=== PATIENT | female | born 1995 | race Native Hawaiian/Other Pacific Islander ===

== ENCOUNTER 2016-07-26 13:42 | Emergency (ER) | payer OTHER ==
[2016-07-26] MEDS ORDERED: Ondansetron INJ* 2 MG/ML VIAL IV ONE (15:58)
[2016-07-26] MEDS ORDERED: NS 0.9% 1000 ML* 1,000 ML IV ONE (15:58)
[2016-07-26] MEDS ORDERED: LORazepam INJ* 2 MG/ML 1 ML VIAL IV PUSH ONE (17:58)
[2016-07-26] MEDS ORDERED: LORazepam TAB(*) 1 MG PO ONE (18:12)
--- NOTE | 2016-07-26 19:00 | ED ---
HPI Chest Pain - HPI Summary HPI Summary: Patient is a 20yo F with a hx of anxiety who arrives with mid-sternal chest pain radiating to the neck since this morning. She denies diaphoresis, weakness , SOB currently or N/V. She states she has had these symptoms before related to her anxiety. She currently takes Zoloft, venlafaxine and propanolol only as needed. She is following up with her therapist tomorrow. Denies family history or personal hx of CAD. Worsening anxiety x 1 month d/t school. Denies SI/HI or self harm. - History of Current Complaint Chief Complaint: EDGeneral Time Seen by Provider: 07/26/16 17:49 Hx Obtained From: Patient Onset/Duration: Started Hours Ago Time of Onset: 06:30 Timing: Intermittent Initial Severity: Mild Current Severity: Mild Pain Intensity: 4 Pain Scale Used: 0-10 Numeric Chest Pain Location: Mid Sternal Chest Pain Radiates: No Character: Dull/Aching Aggravating Factor(s): Nothing Alleviating Factor(s): Nothing Associated Signs and Symptoms: Positive: Nausea, Vomiting - x1 - Risk Factors Pulmonary Embolism Risk Factors: Negative TAD Risk Factors: Negative - Additional Pertinent History Primary Care Physician: [facility] Recent Echo: No Recent Stress Test: No - Allergy/Home Medications Allergies/Adverse Reactions: Allergies Allergy/AdvReac Type Severity Reaction Status Date / Time No Known Allergies Allergy Verified 09/17/15 22:51 PMH/Surg Hx/FS Hx/Imm Hx Previously Healthy: Yes Sensory History: Reports: Hx Contacts or Glasses Opthamlomology History: Reports: Hx Contacts or Glasses Psychiatric History: Reports: Hx Anxiety, Hx Eating Disorder - ANOREXIA NERVOSA , Hx Depression Denies: Hx of Violent Episodes Against Others - Immunization History Hx Pertussis Vaccination: No Immunizations Up to Date: Unable to Obtain/Confirm Infectious Disease History: No Infectious Disease History: Denies: Traveled Outside the [place] in Last 30 Days - Family History Known Family History: Positive: None, Hypertension Family History: Pt did not disclose any family hx of psychiatric issues. - Social History Occupation: Employed Full-time Lives: With Family Alcohol Use: Rare Hx Substance Use: No Substance Use Type: Reports: None Hx Tobacco Use: No Smoking Status (MU): Never Smoked Tobacco Review of Systems Constitutional: Negative Eyes: Negative ENT: Negative Positive: Chest Pain Respiratory: Negative Positive: Vomiting, Nausea Positive: no symptoms reported, see HPI Musculoskeletal: Negative Skin: Negative Neurological: Negative Positive: Anxious, Depressed All Other Systems Reviewed And Are Negative: Yes Physical Exam Triage Information Reviewed: Yes Vital Signs On Initial Exam: Initial Vitals Temp Pulse Resp BP Pulse Ox 96.7 F 70 20 97/59 100 07/26/16 13:47 07/26/16 13:47 07/26/16 13:47 07/26/16 13:47 07/26/16 13:47 Vital Signs Reviewed: Yes Appearance: Positive: Well-Appearing, No Pain Distress, Well-Nourished Skin: Positive: Warm, Skin Color Reflects Adequate Perfusion Head/Face: Positive: Normal Head/Face Inspection Eyes: Positive: EOMI, BHASKAR, Conjunctiva Clear Neck: Positive: No Lymphadenopathy Respiratory/Lung Sounds: Positive: Clear to Auscultation, Breath Sounds Present Cardiovascular: Positive: Normal, RRR Musculoskeletal: Positive: Normal, Strength/ROM Intact Neurological: Positive: Sensory/Motor Intact, Alert, Oriented to Person Place, Time, Speech Normal Psychiatric: Positive: Anxious AVPU Assessment: Alert Diagnostics - Vital Signs Vital Signs Temp Pulse Resp BP Pulse Ox 07/26/16 18:24 16 07/26/16 13:50 98.0 F 64 20 97/59 100 07/26/16 13:47 96.7 F 70 20 97/59 100 - Laboratory Lab Statement: Any lab studies that have been ordered have been reviewed, and results considered in the medical decision making process. Chest Pain Course/Dx - Course Course Of Treatment: Patient with a history of anxiety presents with midsternal chest pain described as a tightening. Denies DVT or PE history. Denies travel , OCP's, known malignancy, patient is a non-smoker and denies leg pain and SOB. Midsternal chest pain is typical for anxiety, but notes this is worse than previous episodes. EKG OK. Zofran given with positive effect. She is OK with discharge and has a follow up appt with therapist tomorrow. Patient given ativan for breakthrough anxiety symptoms, but is encouraged to follow her therapist tomorrow and follow their recommendations. Denies SI/HI or self harm. Worsening anxiety x 1 month. - Chest Pain Differential Diagnosis/HQI/PQRI: Acute [place], ACS, Chest Wall, Pulmonary Embolism, Other: - anxiety - Diagnoses Provider Diagnoses: Anxiety Discharge - Discharge Plan Condition: Stable Disposition: HOME Prescriptions: Lorazepam [Ativan 1 MG TAB] 1 mg PO Q6H #10 tab MDD 4 Patient Education Materials: Anxiety (ED) Referrals: JAY Kelly [Primary Care Provider] - Additional Instructions: Follow up with therapist immediately. If you develop worsening chest pains, come back to ED immediately. Take the ativan 1mg every 6 hours as needed for anxiety attacks
[2016-07-26 19:15] VITALS: BP 88/48
== END 2016-07-26 19:22 | disposition home or self-care (01) ==
LOC: ED 13:42
DX: F41.9 Anxiety disorder, unspecified (principal); F50.00 Anorexia nervosa, unspecified; F32.9 Major depressive disorder, single episode, unspecified
CPT/HCPCS: 93005; 96360; 96374; 99282; A9270-GY; J2405

== ENCOUNTER 2017-06-13 22:13 | Emergency (ER) | payer BC, OTHER ==
[2017-06-13 23:30] LABS: Urine Appearance Cloudy; Urine Blood 3+ (Negative); Urine Color Yellow; Urine Ketones Negative (Negative); Urine Protein Negative (Negative); Urine Specific Gravity 1.027 (1.010-1.030); Urine Urobilinogen Negative (Negative)
[2017-06-14 00:23] LABS: ABS Basophils 0 10^3/ul (0-0.2); ABS Eosinophils 0.3 10^3/ul (0-0.6); ABS Monocytes 0.5 10^3/ul (0-0.8); ABS Neutrophils 3.9 10^3/ul (1.5-7.7); ABS Nucleated RBC 0 10^3/ul; Eosinophil % 4.2 % (0-6); Hematocrit 38 % (35-47); Hemoglobin 12.7 g/dl (12.0-16.0); Lymphocyte % 30.5 % (25-47); Mean Corpuscular HGB Conc 33 g/dl (31-36); Mean Corpuscular Hemoglobin 28 pg (27-31); Mean Corpuscular Volume 84 fL (80-97); Mean Platelet Volume 7.9 um3 (7.4-10.4); Nucleated Red Blood Cells % 0; Platelet Count 268 10^3/ul (150-450); Red Blood Count 4.51 10^6/ul (4.0-5.4); Red Cell Distribution Width 14 % (10.5-15); White Blood Count 6.7 10^3/ul (3.5-10.8)
[2017-06-14 00:39] LABS: EGFR Non-African American 81.1 (>60)
[2017-06-14 02:55] VITALS: BP 105/70
--- NOTE | 2017-06-14 03:42 | ED ---
Rickey Atsudillo Thomas, scribed for Elio Mcgregor MD on 06/13/17 at 2308 . Psychiatric Complaint - HPI Summary HPI Summary: The patient is a 21 year old female complaining of depression for the last few days. She denies any recent stressors. She has superficial lacerations to bilateral forearms that were inflicted yesterday. She denies suicidal and homicidal ideation. She is accompanied by her professor. She is on Zoloft and Latuda. - History Of Current Complaint Chief Complaint: EDMentalHealth Time Seen by Provider: 06/13/17 22:39 Hx Obtained From: Patient Hx Last Menstrual Period: unknown Onset/Duration: Lasting Days, Still Present Timing: Constant Severity Currently: Moderate Character: Depressed Aggravating Factor(s): Nothing Alleviating Factor(s): Nothing Related History: Positive For: Prior Psychiatric Issues - Allergies/Home Medications Allergies/Adverse Reactions: Allergies Allergy/AdvReac Type Severity Reaction Status Date / Time No Known Allergies Allergy Verified 06/13/17 22:35 Home Medications: Home Medications LORazepam [Ativan 1 MG TAB] 1 mg PO Q6H PRN MDD 4 06/14/17 [History Confirmed ] PMH/Surg Hx/FS Hx/Imm Hx Sensory History: Reports: Hx Contacts or Glasses Opthamlomology History: Reports: Hx Contacts or Glasses Psychiatric History: Reports: Hx Anxiety, Hx Eating Disorder - ANOREXIA NERVOSA , Hx Depression Denies: Hx of Violent Episodes Against Others Infectious Disease History: No Infectious Disease History: Denies: Traveled Outside the [place] in Last 30 Days - Family History Known Family History: Positive: Hypertension Family History: Pt did not disclose any family hx of psychiatric issues. - Social History Occupation: Student Alcohol Use: Rare Hx Substance Use: No Substance Use Type: Reports: None Hx Tobacco Use: No Smoking Status (MU): Never Smoked Tobacco Review of Systems Negative: Fever Positive: Other - Superficial lacs Positive: Depressed. Negative: Other - SI, HI All Other Systems Reviewed And Are Negative: Yes Physical Exam - Summary Physical Exam Summary: VITAL SIGNS: Reviewed. GENERAL: Patient is a well-developed and nourished female who is lying comfortable in the stretcher. Patient is not in any acute respiratory distress. HEAD AND FACE: No signs of trauma. No ecchymosis, hematomas or skull depressions. No sinus tenderness. EYES: PERRLA, EOMI x 2, No injected conjunctiva, no nystagmus. EARS: Hearing grossly intact. Ear canals and tympanic membranes are within normal limits. MOUTH: Oropharynx within normal limits. NECK: Supple, trachea is midline, no adenopathy, no JVD, no carotid bruit, no c- spine tenderness, neck with full ROM. CHEST: Symmetric, no tenderness at palpation LUNGS: Clear to auscultation bilaterally. No wheezing or crackles. CVS: Regular rate and rhythm, S1 and S2 present, no murmurs or gallops appreciated. ABDOMEN: Soft, non-tender. No signs of distention. No rebound no guarding, and no masses palpated. Bowel sounds are normal. EXTREMITIES: She has superficial lacerations over both forearms. FROM in all major joints, no edema, no cyanosis or clubbing. NEURO: Alert and oriented x 3. No acute neurological deficits. Speech is normal and follows commands. SKIN: Dry and warm PSYCHIATRIC: She has a depressed affect. She does not have suicidal or homicidal ideation. Triage Information Reviewed: Yes Vital Signs On Initial Exam: Initial Vitals Temp Pulse Resp BP Pulse Ox 99.0 F 76 14 114/69 100 06/13/17 22:33 06/13/17 22:33 06/13/17 22:33 06/13/17 22:33 06/13/17 22:33 Vital Signs Reviewed: Yes Diagnostics - Vital Signs Vital Signs Temp Pulse Resp BP Pulse Ox 06/13/17 22:33 99.0 F 76 14 114/69 100 - Laboratory Result Diagrams: 06/14/17 00:14 06/14/17 00:14 Lab Statement: Any lab studies that have been ordered have been reviewed, and results considered in the medical decision making process. Course/Dx - Course Assessment/Plan: The patient is a 21 year old female complaining of depression for the last few days. She has superficial lacerations to bilateral forearms that were inflicted yesterday. She denies suicidal and homicidal ideation. Bloodwork was obtained. The patient was medically cleared for mental health evaluation. The mental health evaluators spoke with Dr. Espinosa, who recommends discharge home and diagnosis of depression. - Differential Dx/Clinical Impression Provider Diagnosis: Depression - Physician Notifications Discussed Care Of Patient With: Darryl Espinosa Time Discussed With Above Provider: 02:45 Instructed by Provider To: Other - Dr. Espinosa, psychiatry, recommends discharge home with diagnosis of depression. Discharge - Sign-Out/Discharge Documenting (check all that apply): Discharge/Admit/Transfer - Discharge Plan Condition: Stable Disposition: HOME Patient Education Materials: Depression (ED) Referrals: JAY Kelly [Primary Care Provider] - Additional Instructions: Per completion of a mental health evaluation, you are cleared for release and do not require inpatient psychiatric hospitalization at this time. Please go to nearest emergency room or call 911 if safety concerns arise or condition worsens. Follow up with your psychiatrist in the community [facility]........[phone] Suicide Prevention and Crisis Services........................[phone] National Suicide Prevention Lifeline............................283-875-ZIMY ( 0821) [facility].......................[phone] Alcoholics Anonymous...............................................[phone] [facility]..............[phone] [facility]..............................................[phone] The documentation as recorded by the Rickey dela cruz Thomas accurately reflects the service I personally performed and the decisions made by me, Elio Mcgregor MD.
== END 2017-06-14 02:56 | disposition home or self-care (01) ==
LOC: ED 22:13
DX: F32.9 Major depressive disorder, single episode, unspecified (principal); S50.812A Abrasion of left forearm, initial encounter; S50.811A Abrasion of right forearm, initial encounter; X58.XXXA Exposure to other specified factors, initial encounter; Y92.9 Unspecified place or not applicable
CPT/HCPCS: 36415; 80053; 80307; 80320; 80329; 81003; 81015; 84443; 84702; 85025; 87086; 99285; G0480

== ENCOUNTER 2018-04-26 20:26 | Emergency (ER) | payer OTHER ==
--- NOTE | 2018-04-26 21:04 | ED ---
Psychiatric Complaint - HPI Summary HPI Summary: This patient is a 22 year old F presenting to [facility] with a chief complaint of feeling stressed and depressed since 08:00. The patient rates the pain 0/10 in severity. Symptoms aggravated by recent stress. Symptoms alleviated by nothing. Patient reports that she was dumped by her ex-boyfriend 1 day ago. She says that she wants to talk to someone. Patient denies any thoughts of hurting herself. Patient has hx of anxiety and depression. She takes Zoloft and Latuda. The patient reports that she sees a psychiatrist in [place] but notes she has not talked to her in over a week. - History Of Current Complaint Chief Complaint: EDPsychosocial Time Seen by Provider: 04/26/18 20:56 Hx Obtained From: Patient Hx Last Menstrual Period: unknown Onset/Duration: Sudden Onset, Lasting Hours, Still Present Timing: Constant Severity Initially: Mild Severity Currently: Mild Character: Depressed Aggravating Factor(s): Recent Stress - break-up Alleviating Factor(s): Nothing Related History: Positive For: Prior Psychiatric Issues - depression and anxiety Has Suicidal: Denies: Thoughts Recent Stressor(s): ex-boyfriend broke up her with 1 day ago - Allergies/Home Medications Allergies/Adverse Reactions: Allergies Allergy/AdvReac Type Severity Reaction Status Date / Time peppermint Allergy Rash And Verified 04/26/18 20:39 Itching Home Medications: Home Medications Lurasidone(*) [Latuda] 100 mg PO DAILY 04/26/18 [History Confirmed 04/26/18] Propranolol HCl 50 mg PO DAILY PRN 04/26/18 [History Confirmed 04/26/18] hydrOXYzine pamoate [Vistaril] 75 mg PO DAILY PRN 04/26/18 [History Confirmed ] PMH/Surg Hx/FS Hx/Imm Hx Endocrine/Hematology History: Denies: Hx Diabetes Sensory History: Reports: Hx Contacts or Glasses Opthamlomology History: Reports: Hx Contacts or Glasses Psychiatric History: Reports: Hx Anxiety, Hx Eating Disorder - ANOREXIA NERVOSA , Hx Depression Denies: Hx of Violent Episodes Against Others - Surgical History Surgery Procedure, Year, and Place: none Infectious Disease History: No Infectious Disease History: Denies: Traveled Outside the [place] in Last 30 Days - Family History Known Family History: Positive: Hypertension Family History: Pt did not disclose any family hx of psychiatric issues. - Social History Alcohol Use: Rare Hx Substance Use: No Substance Use Type: Reports: None Hx Tobacco Use: No Smoking Status (MU): Never Smoked Tobacco Review of Systems Negative: Fever Negative: Epistaxis Negative: Cough Negative: Vomiting Psychological: Other - patient denies intention to hurt herself Positive: Depressed All Other Systems Reviewed And Are Negative: Yes Physical Exam - Summary Physical Exam Summary: VITAL SIGNS: Reviewed. GENERAL: Patient is a well-developed and nourished FEMALE who is lying comfortable in the stretcher. Patient is not in any acute respiratory distress. HEAD AND FACE: No signs of trauma. No ecchymosis, hematomas or skull depressions. No sinus tenderness. EYES: PERRLA, EOMI x 2, No injected conjunctiva, no nystagmus. EARS: Hearing grossly intact. Ear canals and tympanic membranes are within normal limits. MOUTH: Oropharynx within normal limits. NECK: Supple, trachea is midline, no adenopathy, no JVD, no carotid bruit, no c- spine tenderness, neck with full ROM. CHEST: Symmetric, no tenderness at palpation LUNGS: Clear to auscultation bilaterally. No wheezing or crackles. CVS: Regular rate and rhythm, S1 and S2 present, no murmurs or gallops appreciated. ABDOMEN: Soft, non-tender. No signs of distention. No rebound no guarding, and no masses palpated. Bowel sounds are normal. EXTREMITIES: FROM in all major joints, no edema, no cyanosis or clubbing. NEURO: Alert and oriented x 3. No acute neurological deficits. Speech is normal and follows commands. SKIN: Dry and warm PSYCH: Depressed, quiet, and denies any suicidal thoughts or plan. No homicidal thoughts or plan. No signs of psychosis or pressure speech. No tangential speech. Triage Information Reviewed: Yes Vital Signs On Initial Exam: Initial Vitals Temp Pulse Resp BP Pulse Ox 98.0 F 78 16 132/71 100 04/26/18 20:36 04/26/18 20:36 04/26/18 20:36 04/26/18 20:36 04/26/18 20:36 Vital Signs Reviewed: Yes Diagnostics - Vital Signs Vital Signs Temp Pulse Resp BP Pulse Ox 04/26/18 20:36 98.0 F 78 16 132/71 100 - Laboratory Lab Statement: Any lab studies that have been ordered have been reviewed, and results considered in the medical decision making process. Course/Dx - Course Assessment/Plan: Patient is a 23-year-old female who presents to the emergency room with a chief complaint of being anxious and depressed. She reports that she terminated the relationship with her boyfriend and since then the patient said the above symptoms. She denies any suicidal or homicidal ideation. She has history of depression. The patient is medically clear and awaiting for mental health evaluation. Patient will be signed out to Dr. Turpin at shift change. - Differential Dx/Clinical Impression Differential Diagnosis/HQI/PQRI: Positive: Anxiety, Depression Provider Diagnosis: Depression Discharge - Sign-Out/Discharge Documenting (check all that apply): Sign-Out Patient - upon physician shift change pending E Signing out patient TO: Jack Turpin Patient Received Moderate/Deep Sedation with Procedure: No - Discharge Plan Condition: Stable Referrals: No Primary Care Phys,NOPCP [Primary Care Provider] - - Attestation Statements Document Initiated by Scribe: Yes Documenting Scribe: Kendra Sosa Provider For Whom Nasibe is Documenting (Include Credential): Jonatan Mantilla MD Scribe Attestation: Kendra Astudillo, scribed for Jonatan Mantilla MD on 04/26/18 at 2123. Status of Scribe Document: Ready
--- NOTE | 2018-04-26 21:53 | ED ---
Progress - Progress Note Progress Note: This patient was signed out from Dr. Mantilla to Dr. Turpin, pending MHE. MHE done by Dr. Fraser at 0311 and she will be discharged with dx of depression. Patient understands and agrees with this plan. Course/Dx - Course Course Of Treatment: This patient was signed out from Dr. Mantilla to Dr. Turpin, pending MHE. MHE done by Dr. Fraser at 0311 and she will be discharged with dx of depression. Patient understands and agrees with this plan. - Diagnoses Provider Diagnoses: Depression Discharge - Sign-Out/Discharge Documenting (check all that apply): Patient Departure - discharge Patient Received Moderate/Deep Sedation with Procedure: No - Discharge Plan Condition: Stable Disposition: HOME Referrals: No Primary Care Phys,NOPCP [Primary Care Provider] - - Attestation Statements Document Initiated by Scribe: Yes Documenting Scribe: Alberto Lilly Provider For Whom Scribe is Documenting (Include Credential): Papi Santiago MD Scribe Attestation: I, Alberto Lilly, scribed for Papi Santiago MD on 04/27/18 at 0311. Status of Scribe Document: Ready
[2018-04-27 03:48] VITALS: BP 109/63
== END 2018-04-27 03:48 | disposition home or self-care (01) ==
LOC: ED 20:26
DX: F32.9 Major depressive disorder, single episode, unspecified (principal); F41.9 Anxiety disorder, unspecified; F50.00 Anorexia nervosa, unspecified
CPT/HCPCS: 99284